=== PATIENT | female | born 1985 | race African-American/Black ===

== ENCOUNTER 2016-12-04 20:25 | Emergency (ER) | payer MEDICAID, OTHER ==
[~2016-12-04] VITALS: Ht 177.8 cm; Wt 143.0 kg
[2016-12-04] MEDS ORDERED: MORPHINE SULFATE 4 MG/ML CPJ (NOT FOR IM USE) IV STA (23:48)
[2016-12-04] MEDS ORDERED: SODIUM CHLORIDE 0.9% 1,000 ML IV ONE (23:48)
[2016-12-04] MEDS ORDERED: FAMOTIDINE 20MG/2ML VIAL IV STA (23:48)
[2016-12-04] MEDS ORDERED: SODIUM CHLORIDE 0.9% 500 ML IV ONE (23:48)
[2016-12-04] MEDS ORDERED: ONDANSETRON HCL 4MG/2ML VIAL IV STA (23:48)
[2016-12-04 23:49] LABS: CLARITY URINE CLOUDY (CLEAR); COLOR URINE YELLOW (YELLOW); GLUCOSE URINE NEGATIVE (NEGATIVE); KETONES URINE TRACE (NEGATIVE); LEUKOCYTE ESTERASE URINE NEGATIVE (NEGATIVE); NITRITE URINE NEGATIVE (NEGATIVE); OCCULT BLOOD URINE NEGATIVE (NEGATIVE); PROTEIN URINE TRACE (NEGATIVE); SPECIFIC GRAVITY URINE 1.032 (1.005-1.030)
[2016-12-05 00:14] LABS: BASOPHILS % 0.9 % (0.0-2.0); EOSINOPHILS % 3.3 % (0.0-5.0); HEMATOCRIT. 23.5 % (36.0-48.0); HEMOGLOBIN. 7.2 g/dL (12.0-16.0); LYMPHOCYTES % 31.3 % (20.0-50.0); MEAN CORPUSCULAR HEMOGLOBIN 18.9 pg (28.0-32.0); MEAN CORPUSCULAR VOLUME 62.1 fL (81.0-99.0); MEAN PLATELET VOLUME 9.1 fl (7.4-10.4); MONOCYTES % 8.4 % (2.0-8.0); NEUTROPHILS % 56.1 % (40.0-76.0); PLATELET 334 x1000/uL (130-400); RED BLOOD CELL COUNT 3.79 mill/uL (4.2-5.4); RED CELL DISTRIBUTION WIDTH 19.1 % (11.6-14.6)
[2016-12-05 00:19] LABS: PLATELET ESTIMATE NORMAL
[2016-12-05 00:20] LABS: CHLORIDE 103 mEq/L (98-107); INR 1.1; PROTHROMBIN TIME 11.2 sec (9.4-11.6)
[2016-12-05 00:29] LABS: CARBON DIOXIDE 29 mEq/L (21-32)
[2016-12-05] MEDS ORDERED: KETOROLAC 30MG/ML VIAL IV ONE (00:30)
[2016-12-05 03:15] VITALS: BP 129/77
== END 2016-12-05 04:20 | disposition home or self-care (01) ==
LOC: ER 22:43
DX: K59.00 Constipation, unspecified (principal); D64.9 Anemia, unspecified; D25.9 Leiomyoma of uterus, unspecified; E66.9 Obesity, unspecified
CPT/HCPCS: 36415; 74176; 80053; 81001; 81025; 83690; 85025; 85610; 96361; 96374; 96375; 99285; J1885; J2405; J3490; J7030; J7040; Z7610; J2270

== ENCOUNTER 2020-10-16 21:31 | Emergency (ER) | payer OTHER ==
[~2020-10-16] VITALS: Ht 175.3 cm; Wt 137.0 kg
[2020-10-17] MEDS ORDERED: KETOROLAC 60MG/2ML VIAL IM ONE (00:30)
[2020-10-17] MEDS ORDERED: METHOCARBAMOL 750MG TABLET PO SCH ×2 (02:00→06:00)
[2020-10-17] MEDS ORDERED: METH-653 MT (03:11)
[2020-10-17] MEDS ORDERED: NAPR-681 MT (03:11)
[2020-10-17 03:38] VITALS: BP 135/66
== END 2020-10-17 03:43 | disposition home or self-care (01) ==
LOC: ER 22:27
DX: S39.012A Strain of muscle, fascia and tendon of lower back, initial encounter (principal); X58.XXXA Exposure to other specified factors, initial encounter; Y93.89 Activity, other specified; Y92.89 Other specified places as the place of occurrence of the external cause; Y99.8 Other external cause status; Z98.890 Other specified postprocedural states
CPT/HCPCS: 81025; 96372; 99283; J1885

== ENCOUNTER 2022-06-17 19:48 | Emergency (ER) | payer MEDICAID, OTHER ==
[~2022-06-17] VITALS: Ht 172.7 cm; Wt 170.1 kg
[~2022-06-17 19:48] MED LIST: METH-653 MT; NAPR-681 MT
[2022-06-17 20:27] VITALS: BP 161/93
[2022-06-17] MEDS ORDERED: KETOROLAC 30MG/ML VIAL IM ONE (23:00)
[2022-06-17] MEDS ORDERED: IBUP-2028 MT (23:24)
== END 2022-06-17 23:45 | disposition home or self-care (01) ==
LOC: ER 20:09
DX: M79.602 Pain in left arm (principal); Z98.890 Other specified postprocedural states
CPT/HCPCS: 73060; 96372; 99283; J1885